=== PATIENT | female | born 2000 | race Caucasian/White ===

== ENCOUNTER 2019-06-30 13:07 | Emergency (ER) | payer OTHER ==
[~2019-06-30] VITALS: Ht 152.4 cm; Wt 54.4 kg
== END 2019-06-30 17:10 | disposition home or self-care (01) ==
LOC: ER 13:07 → EDBD 13:23 → ER 17:10
DX: O46.8X1 Other antepartum hemorrhage, first trimester (principal)

== ENCOUNTER → 2019-11-15 | Emergency (ER) | payer OTHER ==
[~2019-11-15] VITALS: Ht 152.4 cm; Wt 59.0 kg
== END | disposition left against medical advice (07) ==
LOC: ER 17:59
DX: N93.8 Other specified abnormal uterine and vaginal bleeding (principal); R51 Headache; R53.1 Weakness